=== PATIENT | female | born 1930 | race Caucasian/White ===

== ENCOUNTER 2018-11-19 17:50 | Emergency (ER) | payer MEDICARE, OTHER ==
[~2018-11-19 17:50] MED LIST: ISOVUE-370 76%-LOCM 1 ML ONE
[2018-11-19 18:50] LABS: #Eosinphils 0.2 thou/uL (0.0-0.7); #Lymphocytes 1.4 thou/uL (1.20-3.40); #Monocytes 0.8 thou/uL (0.11-0.59); #Neutrophils 7.4 thou/uL (1.40-6.50); %Basophils 0.3 % (0.0-1.0); %Eosinophils 1.6 % (0.0-10.0); %Lymphocytes 14.5 % (21.0-51.0); %Monocytes 7.9 % (0.0-10.0); %Neutrophils 75.7 % (42.0-75.0); Hemoglobin 12.1 g/dL (12.0-16.0); Mean Corpuscular HGB CONC 31.9 g/dL (32.0-36.0); Mean Corpuscular Hemoglobin 29.4 pg (27.0-31.0); Mean Corpuscular Volume 92.1 fL (78.0-98.0); Mean Platelet Volume 7.6 fL (7.4-10.4); Platelet Count 201 thou/uL (130-400); RBC Distribution Width 11.6 % (11.5-14.5); White Blood Cell (WBC) Count 9.7 thou/uL (4.8-10.8)
[2018-11-19 19:18] LABS: ALT (SGPT) 29 U/L (8-55); AST (SGOT) 39 U/L (5-34); Albumin 3.9 g/dL (3.4-4.8); Alkaline Phosphatase 100 U/L (40-150); BUN (Urea Nitrogen) 22 mg/dL (9.8-20.1); Bilirubin, Total 0.4 mg/dL (0.2-1.2); Calc. Creatinine Clearance 0 mL/min (70-130); Calcium 9.7 mg/dL (7.8-10.44); Estimated GFR-MDRD 59; Globulin 2.6 g/dL (2.4-3.5); Glucose 98 mg/dL (83-110); Protein, Total 6.5 g/dL (6.0-8.3)
--- NOTE | 2018-11-19 19:24 | RAD ---
CHEST ONE VIEW: 11/19/18 INDICATION: History of shortness of breath and chest pain. FINDINGS: There is scattered pulmonary nodules suspicious for metastatic disease. There is cardiomegaly. There is small bilateral pleural effusions, left greater than right. There is mild pulmonary vascular conge stion. There is a calcified granuloma in the right mid lung. No acute osseous abnormality is evident. IMPRESSION: 1. Scattered pulmonary nodules suspicious for metastatic disease. 2. Cardiomegaly with changes of mild CHF. POS: [facility]
[2018-11-19 19:27] LABS: Anion Gap 16 mmol/L (10-20); Carbon Dioxide 36 mmol/L (23-31); Chloride 92 mmol/L (98-107); Potassium 3.2 mmol/L (3.5-5.1); Sodium 141 mmol/L (136-145)
--- NOTE | 2018-11-19 20:19 | CT ---
CT arteriogram chest with IV contrast and 3-D imaging HISTORY: Chest pain. Dyspnea. FINDINGS: There is good contrast opacification pulmonary arteries and thoracic aorta with normal bran nikita of the great vessels at the aortic arch. Lungs are hyperinflated. Scattered throughout each lung are patchy ill-defined areas of chronic appearing parenchymal opacity and scarring. Scattered ca lcified granulomata are consistent with healed granulomatous disease. No pleural fluid or mediastinal adenopathy. No pneumothorax. Calcification throughout the arterial structures. Low-density lesion at the expected location of the left adrenal gland may reflect an adenoma. IMPRESSION: No CT evidence of pulmonary embolus. Atherosclerosis. Pulmonary hyperinflation with scattered areas of scarring and other chronic appearing parenchymal opa city. No active abnormalities are reliably demonstrated.
[2018-11-19] MEDS ORDERED: methylPREDNISolone Sod Succ/PF 125 MG/2 ML VIAL ONE (21:55)
--- NOTE | 2018-11-23 01:28 | EKG ---
Test Reason : Blood Pressure : / mmHG Vent. Rate : 075 BPM Atrial Rate : 075 BPM P-R Int : 160 ms QRS Dur : 088 ms QT Int : 442 ms P-R-T Axes : 093 024 058 degrees QTc Int : 493 ms Normal sinus rhythm with sinus arrhythmia Possible Left atrial enlargement Septal infarct , age undetermined Abnormal ECG Confirmed by INOCENTE FLETCHER ([id number]), web content editor CHIRAG DIAZ ([id number]) on 11/23/2018 1:27:23 AM Referred By: Confirmed By:INOCENTE FLETCHER
== END 2018-11-19 22:10 | disposition home or self-care (01) ==
LOC: ERS 17:50
DX: J44.1 Chronic obstructive pulmonary disease with (acute) exacerbation (principal)
CPT/HCPCS: 36415; 71045; 71275; 80053; 81001; 83880; 84484; 85025; 87086; 93005; 96365; J1956; J2930; Q9966

== ENCOUNTER 2018-12-18 12:45 | Outpatient (CLI) | payer MEDICARE, OTHER ==
--- NOTE | 2018-12-18 14:31 | RAD ---
2 VIEW CHEST: Date: 12/18/18 HISTORY: Dyspnea. COMPARISON: 11/19/18. FINDINGS: Cardiomegaly again noted. No evidence of vascular congestion or edema. No focal infiltrate. Posterior gutters are blunted, which could represent small effusions. This is a stable finding. Calcified gran uloma in the right mid lung again noted. IMPRESSION: Stable chest findings with no evidence of acute lung process. Small effusions may be present. POS: [facility]
== END 2018-12-18 12:46 | disposition home or self-care (01) ==
LOC: RAD 12:45
PROVIDERS: ATTEND Internal Medicine Critical Care Medicine
DX: R06.00 Dyspnea, unspecified (principal)
CPT/HCPCS: 71046

== ENCOUNTER 2018-12-27 10:22 | Observation (INO) | payer MEDICARE, OTHER ==
--- NOTE | 2018-12-27 10:46 | RAD ---
Chest one view HISTORY: Cough. Chest pain. COMPARISON: 12/18/2018. FINDINGS: Cardiac silhouette is magnified and enlarged. Pulmonary vasculature is unremarkable. Patchy areas of atelectasis are again demonstrated at the right lateral lung base and each upper lobe. Lung markings extend beyond the skinfold at the left mid chest that is vertically oriented and mimics a pneumothorax. Calcified granulomata are consistent with healed granulomatous disease. Blunting of each costophrenic angle. Mediastinum is midline. IMPRESSION: Cardiomegaly and patchy areas of atelectasis are stable. Small amount of bilateral pleura l fluid. No active cardiopulmonary abnormalities are otherwise demonstrated.
[2018-12-27 11:00] LABS: #Eosinphils 0.1 thou/uL (0.0-0.7); #Lymphocytes 1.4 thou/uL (1.20-3.40); #Monocytes 0.8 thou/uL (0.11-0.59); #Neutrophils 7.5 thou/uL (1.40-6.50); %Basophils 0.4 % (0.0-1.0); %Eosinophils 1.3 % (0.0-10.0); %Lymphocytes 14.3 % (21.0-51.0); %Monocytes 7.9 % (0.0-10.0); Hemoglobin 12.2 g/dL (12.0-16.0); Mean Corpuscular HGB CONC 32.3 g/dL (32.0-36.0); Mean Corpuscular Hemoglobin 29.6 pg (27.0-31.0); Mean Corpuscular Volume 91.5 fL (78.0-98.0); Mean Platelet Volume 7.3 fL (7.4-10.4); Platelet Count 201 thou/uL (130-400); RBC Distribution Width 12.2 % (11.5-14.5); Red Blood Cell (RBC) Count 4.11 mill/uL (4.20-5.40); White Blood Cell (WBC) Count 9.9 thou/uL (4.8-10.8)
[2018-12-27] MEDS ORDERED: Aspirin Chewable 81 MG TAB ONE (11:05)
[2018-12-27 11:28] LABS: ALT (SGPT) 19 U/L (8-55); AST (SGOT) 28 U/L (5-34); Albumin 3.5 g/dL (3.4-4.8); Alkaline Phosphatase 81 U/L (40-110); Anion Gap 13 mmol/L (10-20); BUN (Urea Nitrogen) 15 mg/dL (9.8-20.1); Bilirubin, Total 0.6 mg/dL (0.2-1.2); CK (CPK) 129 U/L (29-168); Calc. Creatinine Clearance 0 mL/min (70-130); Calcium 9.9 mg/dL (7.8-10.44); Carbon Dioxide 37 mmol/L (23-31); Chloride 96 mmol/L (98-107); Estimated GFR-MDRD 60; Globulin 3.1 g/dL (2.4-3.5); Glucose 100 mg/dL (83-110); Potassium 3.4 mmol/L (3.5-5.1); Protein, Total 6.6 g/dL (6.0-8.3); Sodium 143 mmol/L (136-145)
--- NOTE | 2018-12-27 13:51 | CT ---
CT arteriogram chest with IV contrast and 3-D imaging HISTORY: Chest pain. Dyspnea. COMPARISON: 11/19/2018. FINDINGS: There is good contrast opacification of the pulmonary arteries and thoracic aorta with norm al branching of the great vessels at the aortic arch. Lungs remain hyperinflated. Prominent areas of nodular scarring within each lung are similar in appearance to the prior exam. Calcified granuloma ta are again demonstrated. Pleural thickening and scarring at the posterior costophrenic angles is again demonstrated, right greater than left. Calcification within the arterial structures. Mildly displaced healing fracture of the lateral aspect of the right fifth rib is apparent. Nonhealin g fracture of the lateral aspect of the right sixth rib now evident. Within the partially visualized upper abdomen, low-density lesion of the left adrenal gland is stable. IMPRESSION: No CT evidence of pulmonary embolus. Atherosclerosis. Right lateral mid rib fractures. No evidence of complication. Extensive parenchymal scarring and other chronic-type findings are stable.
[2018-12-27 17:04] LABS: Troponin I 0.044 ng/mL (< 0.028)
[2018-12-27] MEDS ORDERED: HYDROcodone/Acetaminophen 5/325 mg Tablet PO PRN (17:19)
[2018-12-27] MEDS ORDERED: Acetaminophen 325 MG TAB PO PRN (17:19)
[2018-12-27] MEDS ORDERED: Pot Chloride/Pot Bicarb/Cit Ac 25 mEq Effervescent Tablet PO SCH (17:45)
[2018-12-27] MEDS ORDERED: Potassium Bicarbonate/Cit Ac 25 MEQ TAB PO SCH (18:30)
[2018-12-27 19:30] VITALS: BMI 17.0
[2018-12-27 20:17] LABS: Troponin I 0.045 ng/mL (< 0.028)
--- NOTE | 2018-12-27 20:18 | HP ---
PRIMARY CARE PHYSICIAN: Dr. Camilo. CHIEF COMPLAINT: Chest pain. HISTORY OF PRESENT ILLNESS: This is a very pleasant 88-year-old female with a history of dementia, schizophrenia, congestive heart failure, CVA, hypertension, and dysphagia. She presented to the emergency room today after started complaining about right-sided chest pain yesterday. The patient is unable to answer questions during review of systems due to her underlying dementia and schizophrenia. Family states mental status is at baseline. They are currently at the bedside. Daughter cares for her mother and is aware of her past medical history and current symptoms. Daughter reports that she started to have the pain yesterday and it is gradually worsening. She gave her some Motrin this morning and is not really sure whether that helped. Daughter reports that she appears to have more pain with a cough, which she has had for a few days, but denied any fevers or chills. She has a history of aspiration pneumonia due to dysphagia from a previous stroke, but has not been hospitalized for this since March of this year. Lab work; potassium 3.4, chloride 96, carbon dioxide 37. Troponin; first one was negative, second one is in the indeterminate range of 0.044. BNP at 164.3. The patient underwent a chest x-ray, which showed cardiomegaly with patchy areas of atelectasis, which are stable. Small amounts of bilateral pleural effusions. The patient also underwent a CTA of the chest thorax, which was negative for any pulmonary emboli, but did show right lateral mid rib fractures. No evidence of any complication. Extensive parenchymal scarring and other chronic type findings, which are stable. at the bedside states he is not sure how she may have gotten those rib fractures, but she is tender on palpation. Reports that she does have the bedside commode and it is possible that she got herself up in the middle of the night and fell without anyone knowing. Due to the indeterminate troponin, the patient admitted to the observation unit for further management. REVIEW OF SYSTEMS: Essentially unobtainable. Daughter reports that she has been complaining of chest pain on the right side, worse with cough. PAST MEDICAL HISTORY: Based on prior records, notable for COPD, chronic respiratory failure, on p.r.n. oxygen, chronic dysphagia, anxiety, schizophrenia, hypertension, hyperlipidemia, osteoporosis, and history of CVA. Also, some dementia. PAST SURGICAL HISTORY: Bladder suspension, history of ECT for schizophrenia. FAMILY HISTORY: Both parents had heart disease. Also, hypertension in the family. SOCIAL HISTORY: The patient lives at home with her family. Her is there and daughter comes regularly to help take care of her. reports that the patient is a full code. On last admission, she was a chemical code and intubation only. We may need to reassess once daughter is at the bedside. ALLERGIES: NONE. CURRENT MEDICATIONS: From the ER; 1. Olanzapine 5 mg p.o. b.i.d., although I believe that daughter told me that the a.m. dose has been increased to 7.5. 2. Lisinopril 20 mg p.o. b.i.d. 3. Mirtazapine 7.5 mg at bedtime. 4. Hydralazine 10 mg t.i.d. 5. Amlodipine 10 mg p.o. at bedtime. 6. Furosemide 20 mg b.i.d. 7. Aspirin 81 mg p.o. once a day. 8. Zinc 30 mg once a day in the morning. 9. Calcium 150 mg p.o. b.i.d. PHYSICAL EXAMINATION: VITAL SIGNS: Blood pressure 165/72, pulse is 80, respirations are 22, temperature is 98.7. Pain is unable to determine. PO2 sats are 99% on 2 L. CONSTITUTIONAL: The patient appears nontoxic. She is pleasantly confused, is oriented to person and place. She does answer some questions appropriately. Does answer some yes/no questions. HEENT: Head is atraumatic and normocephalic. Eyes, pupils are equally round and reactive to light. Extraocular muscles are intact. ENT; mouth exam is normal. Mucous membranes are dry. NECK: Normal range of motion. Trachea is midline. RESPIRATORY: Chest breath sounds are clear. No findings of any respiratory distress. CARDIOVASCULAR: Regular heart rate and rhythm. Heart sounds are normal. ABDOMEN: Bowel sounds are heard. No tenderness on palpation. EXTREMITIES: Upper extremities; normal inspection, normal range of motion. Radial pulses are normal. Lower extremity; normal inspection, normal range of motion. Pedal pulses are normal. No edema is noted. NEUROLOGIC: The patient is oriented to person and place. SKIN: Warm, dry, and normal in color. DIAGNOSTIC DATA: EKG in the emergency room shows AFib with controlled ventricular response. Beats per minute 74 with competing junctional pacemaker. PLAN/ASSESSMENT: 1. Chest pain with subacute rib fractures to right 5th and 6th, and she is tender on palpation. Troponin in the indeterminate range, so we will trend troponins x3, place the patient on a monitor, ask Cardiology to consult. 2. History of dementia, schizophrenia. We will restart home medications. 3. History of hypertension, restart home medications. 4. Chronic obstructive pulmonary disease. We will add some DuoNeb p.r.n. as needed. 5. Case discussed with Dr. Forte who agrees with plan. 6. Deep venous thrombosis and gastrointestinal prophylaxis started. 7. Hospital course dependent on clinical findings. Job ID: [id number]
[2018-12-27] MEDS: HYDROcodone/Acetaminophen 5/325 mg Tablet PO PRN (21:00)
[2018-12-27] MEDS ORDERED: OLANZapine 10 MG VIAL IM SCH (21:00)
[2018-12-27] MEDS: Mirtazapine 15 MG TAB PO SCH (21:01)
[2018-12-27] MEDS: Famotidine 20 MG TAB PO SCH (21:01)
[2018-12-27] MEDS ORDERED: OLANZapine 5 MG TAB PO SCH (23:30)
[2018-12-28 06:19] LABS: #Basophils 0.1 thou/uL (0.0-0.2); #Eosinphils 0.2 thou/uL (0.0-0.7); #Lymphocytes 1.5 thou/uL (1.20-3.40); #Neutrophils 7.1 thou/uL (1.40-6.50); %Basophils 0.6 % (0.0-1.0); %Eosinophils 2.2 % (0.0-10.0); %Lymphocytes 15.5 % (21.0-51.0); %Monocytes 9.6 % (0.0-10.0); %Neutrophils 72.1 % (42.0-75.0); Hemoglobin 11.8 g/dL (12.0-16.0); Mean Corpuscular HGB CONC 32.6 g/dL (32.0-36.0); Mean Corpuscular Hemoglobin 29.1 pg (27.0-31.0); Mean Corpuscular Volume 89.3 fL (78.0-98.0); Mean Platelet Volume 7.5 fL (7.4-10.4); Platelet Count 204 thou/uL (130-400); RBC Distribution Width 12.2 % (11.5-14.5); Red Blood Cell (RBC) Count 4.06 mill/uL (4.20-5.40); White Blood Cell (WBC) Count 9.9 thou/uL (4.8-10.8)
[2018-12-28 06:47] LABS: BUN (Urea Nitrogen) 16 mg/dL (9.8-20.1); Calc. Creatinine Clearance 36 mL/min (70-130); Calcium 9.6 mg/dL (7.8-10.44); Estimated GFR-MDRD 70; Glucose 81 mg/dL (83-110)
[2018-12-28 06:56] LABS: Anion Gap 16 mmol/L (10-20); Carbon Dioxide 33 mmol/L (23-31); Chloride 99 mmol/L (98-107); Potassium 3.1 mmol/L (3.5-5.1); Sodium 145 mmol/L (136-145)
[2018-12-28] MEDS: Amlodipine 10 MG TAB PO SCH (10:39)
[2018-12-28] MEDS: Enoxaparin Sodium 30 MG/0.3 ML SYRINGE SC SCH (10:42)
[2018-12-28] MEDS: Famotidine 20 MG TAB PO SCH ×2 (10:42→20:57)
[2018-12-28] MEDS: Furosemide 20 MG TAB PO SCH (10:43)
[2018-12-28] MEDS: Lisinopril 20 MG TAB PO SCH ×2 (10:43→20:57)
[2018-12-28] MEDS: hydrALAZINE 10 MG TAB PO SCH ×3 (10:43→20:55)
[2018-12-28] MEDS: OLANZapine 2.5 MG TAB PO SCH (10:44)
[2018-12-28] MEDS: HYDROcodone/Acetaminophen 5/325 mg Tablet PO PRN ×2 (15:51→21:57)
--- NOTE | 2018-12-28 19:26 | PDOC.HOSPP ---
- Subjective Encounter Date: 12/28/18 Encounter Time: 19:05 Subjective: f/u for R-sided chest wall pain and rib fx after apparent fall that was unwitnessed. Lives at home with family/ and receives HH services with with PT about 1x/wk. RW for ambulating but unsteady and uses WC for long distance mobilization. - Objective Vital Signs & Weight: Vital Signs (12 hours) Temp Pulse Resp BP BP Pulse Ox 12/28/18 15:50 61 152/82 H 12/28/18 15:41 98.6 F 61 18 152/82 H 100 12/28/18 11:35 98.4 F 74 18 176/75 H 99 12/28/18 10:43 75 182/78 H 12/28/18 10:39 75 182/78 H 12/28/18 08:00 98.2 F 72 20 138/105 H 95 Weight Weight 96 lb 3.2 oz I&O: 12/27/18 12/28/18 12/29/18 06:59 06:59 06:59 Intake Total 50 480 Balance 50 480 Result Diagrams: 12/28/18 05:12 12/28/18 05:12 Additional Labs: Laboratory Tests 12/27/18 12/27/18 12/27/18 10:44 10:44 10:44 Potassium 3.4 L Troponin I 0.018 B-Natriuretic Peptide 164.3 H 12/27/18 12/27/18 16:14 19:45 Potassium Troponin I 0.044 H 0.045 H B-Natriuretic Peptide Radiology Reviewed by me: Yes (CTA chest - R 5th/6th later rib fx) EKG Reviewed by me: Yes (Tele - SR) Hospitalist ROS - Medication Medications: Active Medications Generic Name Dose Route Start Last Admin Trade Name Freq PRN Reason Stop Dose Admin Hydrocodone Bitart/Acetaminophen 1 tab 12/27/18 17:19 12/28/18 15:51 [place] 5/325 PO 1 tab Q4H PRN Administration Moderate Pain (4-6) Amlodipine Besylate 10 mg 12/28/18 09:00 12/28/18 10:39 Norvasc PO 10 mg DAILY STACY Administration Enoxaparin Sodium 30 mg 12/28/18 09:00 12/28/18 10:42 Lovenox SC 30 mg 0900 STACY Administration Famotidine 20 mg 12/27/18 21:00 12/28/18 10:42 Pepcid PO 20 mg BID STACY Administration Furosemide 20 mg 12/28/18 09:00 12/28/18 10:43 Lasix PO 20 mg DAILY SATCY Administration Hydralazine HCl 10 mg 12/28/18 09:00 12/28/18 15:50 Apresoline PO 10 mg TID STACY Administration Lisinopril 20 mg 12/28/18 09:00 12/28/18 10:43 Zestril PO 20 mg BID STACY Administration Mirtazapine 7.5 mg 12/27/18 21:00 12/27/18 21:01 Remeron PO 7.5 mg HS STACY Administration Olanzapine 7.5 mg 12/28/18 09:00 12/28/18 10:44 Zyprexa PO 7.5 mg DAILY STACY Administration - Exam General Appearance: NAD, awake alert Eye: PERRL, anicteric sclera ENT: normocephalic atraumatic, no oropharyngeal lesions Neck: supple, symmetric, no JVD, no thyromegaly, no lymphadenopathy Heart: RRR, no gallops, no rubs, normal peripheral pulses Respiratory - other findings: diminished in bases, occasional rhonchi Gastrointestinal: soft, non-tender, non-distended, normal bowel sounds, no palpable masses Extremities: no cyanosis, no clubbing, no edema Skin: normal turgor Neurological: cranial nerve grossly intact, no new deficit Musculoskeletal: normal tone, generalized weakness Psychiatric: oriented to person Hosp A/P (1) Rib fractures Code(s): S22.39XA - FRACTURE OF ONE RIB, UNSP SIDE, INIT FOR CLOS FX Status: Acute Qualifiers: Rib fracture type: multiple ribs Laterality: right Fracture healing: with delayed healing Plan: Pain control, trial Lidocaine patches, PT with HH at d/c (2) Debility Code(s): R53.81 - OTHER MALAISE Status: Chronic Plan: See above, fall risk precautions (3) Hypokalemia Code(s): E87.6 - HYPOKALEMIA Status: Acute Plan: Klor-con 40meq BID (4) Schizoaffective disorder Code(s): F25.9 - SCHIZOAFFECTIVE DISORDER, UNSPECIFIED Status: Chronic Plan: Supportive mgmt, Olanzapine (5) Dementia Code(s): F03.90 - UNSPECIFIED DEMENTIA WITHOUT BEHAVIORAL DISTURBANCE Status: Chronic Plan: Family support - Plan plan discussed w/ family, PT/OT, social sciences lecturer, out of bed/ambulate, DVT proph w/SCDs Stable currently Klor Con 40meq BID OOB with PT Lidocaine patches daily Likely home in am
[2018-12-28] MEDS ORDERED: Lidocaine 5% Patch TD SCH (20:00)
[2018-12-28] MEDS: Mirtazapine 15 MG TAB PO SCH (20:57)
[2018-12-28] MEDS ORDERED: OLANZapine 5 MG TAB PO SCH (21:00)
[2018-12-29] MEDS ORDERED: Lidocaine Patch Removal 1 EACH TOP SCH (08:00)
[2018-12-29] MEDS: Enoxaparin Sodium 30 MG/0.3 ML SYRINGE SC SCH (09:14)
[2018-12-29] MEDS: Amlodipine 10 MG TAB PO SCH (09:14)
[2018-12-29] MEDS: hydrALAZINE 10 MG TAB PO SCH (09:15)
[2018-12-29] MEDS: Furosemide 20 MG TAB PO SCH (09:15)
[2018-12-29] MEDS: Lisinopril 20 MG TAB PO SCH (09:15)
[2018-12-29] MEDS: Famotidine 20 MG TAB PO SCH (09:15)
[2018-12-29] MEDS: OLANZapine 2.5 MG TAB PO SCH (09:16)
[2018-12-29 12:14] VITALS: BP 155/66; TEMP 98.5
--- NOTE | 2018-12-29 16:46 | DIS ---
DATE OF ADMISSION: 12/27/2018 DATE OF DISCHARGE: 12/29/2018 DISCHARGE DIAGNOSES: 1. Acute/subacute right-sided rib fractures. 2. Chest pain secondary to acute/subacute right-sided rib fractures. 3. Deconditioning. 4. Hypokalemia. 5. Schizoaffective disorder. 6. Dementia, multifactorial. CONSULTATIONS: None. PERTINENT LABORATORY AND X-RAY FINDINGS: Potassium ranged between 3.1 to 3.4. Creatinine ranged between 0.78 to 0.89. Troponin I ranged between 0.018 to 0.045. BNP 164, previously noted 341 on 11/19/2018. Albumin 3.5. CBC showed a hemoglobin ranging between 12 to 12.2. Portable chest x-ray dated 12/27/2018, showed bibasilar atelectasis with chronic changes in bilateral lung kelly. No acute process identified. CT angiogram of the chest dated 12/27/2018, showed mildly displaced healing fractures on the lateral aspect of the right 5th rib and nonhealing fracture on the lateral aspect of the right 6th rib. HOSPITAL COURSE: The patient was observed after initially presenting with complaints of right-sided chest pain with CT imaging of the chest confirming evidence of 2 rib fractures of the 5th and 6th ribs. The patient was placed on [place] in addition to lidocaine patches for symptomatic relief. No specific witnessed fall prior to admission, likely leading to the patient's presentation. The patient was also noted with mild hypokalemia, receiving potassium supplementation during the hospital course with recommendations to continue potassium supplementation after discharge. The patient remained clinically stable during the hospital course with stable vital signs, remaining on oxygen supplementation at baseline levels of 2 L/minute by nasal cannula. I have examined the patient at the time of discharge and discussed followup instructions. Family verbalized understanding and in agreement and ready for discharge on 12/29/2018. DISCHARGE MEDICATIONS: 1. Lasix 20 mg p.o. daily. 2. Olanzapine 7.5 mg p.o. daily and 5 mg p.o. at bedtime. 3. Norvasc 10 mg p.o. daily. 4. Apresoline 10 mg p.o. t.i.d. 5. Lidocaine patch 5% two patches transdermally daily x12 hours, then remove. 6. Zestril 20 mg p.o. b.i.d. 7. Remeron 7.5 mg p.o. at bedtime. 8. Tramadol 50 mg p.o. q.6 hours p.r.n. pain, #30. FOLLOWUP: The patient may follow up with her primary care provider, Dr. Camilo, within 7 days of discharge. CONDITION ON DISCHARGE: Fair. ACTIVITY: Rolling walker with contact guard assistance and fall risk precautions. SPECIAL INSTRUCTIONS: Resume Home Health Services including physical therapy 3 times per week. DIET: Regular. CODE STATUS: Full. DISPOSITION: Home with [facility] including physical therapy on 12/29/2018. Job ID: [id number]
--- NOTE | 2019-01-03 13:14 | EKG ---
Test Reason : Blood Pressure : / mmHG Vent. Rate : 074 BPM Atrial Rate : 127 BPM P-R Int : 000 ms QRS Dur : 080 ms QT Int : 434 ms P-R-T Axes : 000 -29 038 degrees QTc Int : 481 ms Atrial fibrillation with a competing junctional pacemaker Septal infarct , age undetermined Abnormal ECG Confirmed by MANJU MOROCHO MD ([id number]), news assignment editor DANY SHARMA ([id number]) on 01/03/2019 1:14:18 PM Referred By: Confirmed By:MANJU MOROCHO MD
== END 2018-12-29 13:05 | disposition home health service (06) ==
LOC: ERS 10:22 → 2NO 16:35
PROVIDERS: ADMIT Internal Medicine; ATTEND Internal Medicine
DX: M80.08XA Age-related osteoporosis with current pathological fracture, vertebra(e), initial encounter for fracture (principal); I11.0 Hypertensive heart disease with heart failure; I50.9 Heart failure, unspecified; R53.81 Other malaise; F03.90 Unspecified dementia, unspecified severity, without behavioral disturbance, psychotic disturbance, mood disturbance, and anxiety; F20.9 Schizophrenia, unspecified; J44.9 Chronic obstructive pulmonary disease, unspecified; F41.9 Anxiety disorder, unspecified; E78.5 Hyperlipidemia, unspecified; R13.10 Dysphagia, unspecified; Z86.73 Personal history of transient ischemic attack (TIA), and cerebral infarction without residual deficits; Z79.82 Long term (current) use of aspirin; Z79.899 Other long term (current) drug therapy; Z91.81 History of falling
CPT/HCPCS: 71045; 71275; 80048; 80053; 82550; 83880; 84484 ×2; 85025 ×2; 93005; 96372 ×2; 97139; 97530; 99285; G0378 ×4; 36415; J1650

== ENCOUNTER 2019-03-30 09:34 | Outpatient (CLI) | payer MEDICARE, OTHER ==
--- NOTE | 2019-03-30 09:54 | RAD ---
CHEST 2 VIEWS: COMPARISON: 12/18/2018, 12/27/2018. HISTORY: Dyspnea. FINDINGS: Upper normal cardiac silhouette. Hyperinflation with chronic lung parenchymal changes. Interval devel opment of a small bilateral pleural effusion. There is no pneumothorax or osseous abnormalities. IMPRESSION: Hyperinflation with chronic lung parenchymal changes. Transcribed Date/Time: 03/30/2019 10:27 AM
== END 2019-03-30 09:35 | disposition home or self-care (01) ==
LOC: RAD 09:34
PROVIDERS: ATTEND Internal Medicine Critical Care Medicine
DX: R06.00 Dyspnea, unspecified (principal); J98.4 Other disorders of lung
CPT/HCPCS: 71046

== ENCOUNTER 2019-05-26 14:12 | Inpatient (IN) | payer MEDICARE ==
[2019-05-26 14:43] LABS: #Monocytes 0.5 thou/uL (0.11-0.59); #Neutrophils 9.1 thou/uL (1.40-6.50); %Basophils 0.3 % (0.0-1.0); %Eosinophils 0.2 % (0.0-10.0); %Monocytes 4.8 % (0.0-10.0); %Neutrophils 85.8 % (42.0-75.0); Hemoglobin 10.4 g/dL (12.0-16.0); Mean Corpuscular HGB CONC 30.8 g/dL (32.0-36.0); Mean Corpuscular Hemoglobin 29.1 pg (27.0-31.0); Mean Corpuscular Volume 94.5 fL (78.0-98.0); Mean Platelet Volume 7.8 fL (7.4-10.4); Platelet Count 187 thou/uL (130-400); RBC Distribution Width 12.9 % (11.5-14.5); Red Blood Cell (RBC) Count 3.58 mill/uL (4.20-5.40); White Blood Cell (WBC) Count 10.6 thou/uL (4.8-10.8)
--- NOTE | 2019-05-26 15:20 | RAD ---
XR Chest 1 View Portable History: Shortness of breath Comparison: Radiograph March 30, 2019 Findings: Heart size is enlarged. Progressive parenchymal opacities throughout the right lung. Enlarg ing effusions. Moderate to large effusion on the right and moderate on the left. No acute osseous abnormality. Impression: 1. Enlarging bilateral pleural effusions. 2. Progressive pulmonary opacification of the right lung relatively to the left concerning for worsen ing atypical infection. 3. Cardiomegaly. 4. Healing right rib fractures.
[2019-05-26 15:21] LABS: ALT (SGPT) 32 U/L (8-55); AST (SGOT) 44 U/L (5-34); Albumin 3.7 g/dL (3.4-4.8); Alkaline Phosphatase 87 U/L (40-110); BUN (Urea Nitrogen) 18 mg/dL (9.8-20.1); Bilirubin, Total 0.4 mg/dL (0.2-1.2); Calc. Creatinine Clearance 0 mL/min (70-130); Calcium 9.8 mg/dL (7.8-10.44); Estimated GFR-MDRD 64; Globulin 2.5 g/dL (2.4-3.5); Glucose 107 mg/dL (83-110); Protein, Total 6.2 g/dL (6.0-8.3)
[2019-05-26 15:30] LABS: Anion Gap 16 mmol/L (10-20); CKMB 6.3 ng/mL (0-6.6); Carbon Dioxide 40 mmol/L (23-31); Chloride 91 mmol/L (98-107); Sodium 143 mmol/L (136-145)
[2019-05-26] MEDS ORDERED: Aspirin 325 MG TAB ONE (16:52)
[2019-05-26] MEDS ORDERED: Azithromycin 500 MG VIAL ONE (16:52)
[2019-05-26] MEDS ORDERED: cefTRIAXone\\ROCEPHIN 1 GM VIAL ONE (16:52)
[2019-05-26] MEDS ORDERED: Furosemide 40 MG/4 ML VIAL ONE (16:52)
[2019-05-26 17:35] LABS: Base Excess-Venous 16.6 mmol/L (-2.0 to 3.0); Bicarbonate (HCO3v) 44.3 mmol/L (22.0-28.0); CO2 Tension (PvCO2) 71.1 mmHg (40.0-50.0); Calcium, Ionized 1.18 mmol/L (See Comments:); Chloride 91 mmol/L (98-107); Hemoglobin - Calc 10.5 g/dL (12.0-16.0); Potassium 3.5 mmol/L (3.5-5.1); Sodium 142 mmol/L (138-145); T. Carbon Dioxide 46.4 mmol/L (22.0-28.0); vO2 Saturation-calc 78.9 % (60.0-85.0)
[2019-05-26 17:53] LABS: Troponin I 0.079 ng/mL (< 0.028)
[2019-05-26 21:11] LABS: Troponin I 0.064 ng/mL (< 0.028)
--- NOTE | 2019-05-26 22:41 | HP ---
CHIEF COMPLAINT: Shortness of breath. HISTORY OF PRESENT ILLNESS: Ms. Boston is an 88-year-old female with past medical history of congestive heart failure, schizophrenia, hypertension, hyperlipidemia, aspiration pneumonia, CVA, among others, presents to the emergency room with shortness of breath that started this morning. The patient is on home oxygen. On 2 L/minute nasal cannula, oxygen saturation usually runs in the low 90s. In the emergency room, the patient was hypoxic, needed to be placed on non-rebreather bag initially, which was titrated down to 5 L/minute. Workup in the emergency room, the patient was found to have bilateral effusions, more on the right with bilateral opacities ?pneumonia. The patient was given IV Lasix and put on IV antibiotics. The patient is being admitted to hospital for further management. The patient is a poor historian due to underlying medical condition. PAST MEDICAL HISTORY: As mentioned above in the history of present illness. PAST SURGICAL HISTORY: 1. Ovarian removal. 2. Bladder suspension. SOCIAL HISTORY: Denies alcohol drinking. No smoking history. FAMILY HISTORY: Reviewed and noncontributory. ALLERGIES: NO KNOWN ALLERGIES. HOME MEDICATIONS: Please see home medication reconciliation form for updated medications. REVIEW OF SYSTEMS: Unable to obtain due to the patient's underlying medical condition, but she is denying anything other than shortness of breath. PHYSICAL EXAMINATION: GENERAL: The patient is awake, alert, in moderate respiratory distress. VITAL SIGNS: Blood pressure is 167/81, pulse is 76, respiratory rate is 30, pulse oximetry is 98%, temperature is 98. HEAD AND NECK: Normocephalic, atraumatic. NECK: Supple. CHEST: Decreased air entry in both bases with few scattered crackles. HEART: S1, S2. Regular. ABDOMEN: Soft, nontender. Bowel sounds present. NEUROLOGIC: Awake, alert. No focal deficits. PSYCHIATRIC: Unable to assess. EXTREMITIES: No clubbing or cyanosis. LABORATORY DATA: Troponin 0.04. WBC count is 10, hemoglobin 10.4, and platelets 187. Chest x-ray shows bilateral pleural effusions with progressive pulmonary opacification in the right lung relatively to the length concerning for worsening infection? ASSESSMENT AND PLAN: 1. Acute exacerbation of congestive heart failure, bilateral pleural effusion. 2. Pneumonia? 3. Acute on chronic respiratory failure. 4. Schizophrenia. 5. Hypertension. 6. Hyperlipidemia. 7. Dementia. PLAN: 1. Admit. 2. Telemetry monitoring. 3. Serial troponins given the initial indeterminate troponins. 4. IV diuresis. 5. Empiric IV antibiotics for ?possible pneumonia. 6. Oxygen saturation more than 92%. 7. Reconcile home medications. 8. DVT prophylaxis as appropriate. 9. Expected length of stay 2 midnights or more. Job ID: [id number]
[2019-05-26] MEDS ORDERED: Amlodipine 10 MG TAB PO SCH (23:15)
[2019-05-26] MEDS ORDERED: OLANZapine 5 MG TAB PO SCH (23:30)
[2019-05-26] MEDS ORDERED: Lisinopril 20 MG TAB PO SCH (23:30)
[2019-05-26] MEDS ORDERED: hydrALAZINE 10 MG TAB PO SCH (23:30)
[2019-05-26] MEDS ORDERED: Mirtazapine 15 MG TAB PO SCH (23:30)
[2019-05-26] MEDS: Azithromycin 500 MG in Sodium Chloride 0.9% 250 ML 250 ML IVPB SCH (23:54)
[2019-05-26] MEDS: cefTRIAXone\\ROCEPHIN 1 GM in Sodium Chloride 0.9% 100 ML IVPB SCH (23:55)
[2019-05-27 05:19] LABS: #Eosinphils 0.1 thou/uL (0.0-0.7); #Lymphocytes 1.2 thou/uL (1.20-3.40); #Monocytes 0.7 thou/uL (0.11-0.59); #Neutrophils 9.5 thou/uL (1.40-6.50); %Basophils 0.1 % (0.0-1.0); %Eosinophils 0.5 % (0.0-10.0); %Lymphocytes 10.4 % (21.0-51.0); %Monocytes 5.7 % (0.0-10.0); %Neutrophils 83.3 % (42.0-75.0); Hemoglobin 10.2 g/dL (12.0-16.0); Mean Corpuscular HGB CONC 30.8 g/dL (32.0-36.0); Mean Corpuscular Hemoglobin 29.2 pg (27.0-31.0); Mean Corpuscular Volume 94.9 fL (78.0-98.0); Mean Platelet Volume 7.9 fL (7.4-10.4); Platelet Count 186 thou/uL (130-400); RBC Distribution Width 12.7 % (11.5-14.5); Red Blood Cell (RBC) Count 3.48 mill/uL (4.20-5.40); White Blood Cell (WBC) Count 11.4 thou/uL (4.8-10.8)
[2019-05-27 05:39] LABS: BUN (Urea Nitrogen) 16 mg/dL (9.8-20.1); Calc. Creatinine Clearance 38 mL/min (70-130); Calcium 9.4 mg/dL (7.8-10.44); Estimated GFR-MDRD 69; Glucose 120 mg/dL (83-110)
[2019-05-27 05:50] LABS: Anion Gap 13 mmol/L (10-20); Chloride 91 mmol/L (98-107); Potassium 3.6 mmol/L (3.5-5.1); Sodium 145 mmol/L (136-145)
[2019-05-27 05:53] LABS: Carbon Dioxide 45 mmol/L (23-31)
[2019-05-27] MEDS ORDERED: Furosemide 40 MG/4 ML VIAL SLOW IVP SCH ×2 (06:00→09:39)
[2019-05-27 07:47] LABS: Actual Bicarbonate (HCO3a) 53.8 mEq/L (22-28); Base Excess (BEa) 23.9 mEq/L (-2.0 to +3.0); Calcium, Ionized 1.15 mmol/L (1.12-1.30); Carboxyhemoglobin (COHb) 0.9 gm% (0.0-3.0); O2 Tension (PaO2) 74.2 mmHg (> 60.0); Potassium - ABG Lab 3.11 mmol/L (3.70-5.30); pH, Arterial 7.37 (7.35-7.45)
[2019-05-27 08:31] LABS: CO2 Tension 95.8 mmHg (35.0-45.0); Puncture Site RRA
[2019-05-27] MEDS: OLANZapine 5 MG TAB PO SCH ×2 (09:34→22:30)
[2019-05-27] MEDS: Lisinopril 20 MG TAB PO SCH ×2 (09:36→21:01)
[2019-05-27] MEDS: hydrALAZINE 10 MG TAB PO SCH ×3 (09:37→21:03)
[2019-05-27] MEDS ORDERED: Furosemide 20 MG/2 ML VIAL SLOW IVP SCH (10:00)
[2019-05-27] MEDS: AcetaZOLAMIDE 250 MG TAB PO SCH ×2 (14:42→20:59)
[2019-05-27] MEDS: Furosemide 20 MG/2 ML VIAL SLOW IVP SCH (14:42)
[2019-05-27] MEDS: methylPREDNISolone Sod Succ 40 MG VIAL IVP SCH ×2 (14:42→22:31)
--- NOTE | 2019-05-27 14:42 | PDOC.HOSPP ---
- Subjective Encounter Date: 05/27/19 Encounter Time: 08:45 Subjective: pt was hypoxic, and weak this morning, plan to move to [facility], daughter bedside, - Objective Vital Signs & Weight: Vital Signs (12 hours) Temp Pulse Resp BP Pulse Ox 05/27/19 14:10 83 05/27/19 14:09 89 36 H 96 05/27/19 12:00 98.1 F 05/27/19 11:14 94 L 05/27/19 10:19 87 05/27/19 10:17 92 29 H 90 L 05/27/19 07:38 97.9 F 82 18 193/79 H 94 L 05/27/19 04:50 97.7 F 75 23 H 152/70 H 94 L Weight Admit Weight 104 lb Weight 104 lb Most Recent Monitor Data Heart Rate from ECG 90 NIBP 164/102 NIBP BP-Mean 122 Respiration from ECG 32 SpO2 97 I&O: 05/26/19 05/27/19 05/28/19 06:59 06:59 06:59 Intake Total 240 Output Total 460 Balance -220 Result Diagrams: 05/27/19 04:54 05/27/19 04:54 Radiology Reviewed by me: Yes EKG Reviewed by me: Yes Hospitalist ROS - Review of Systems Constitutional: reports: weakness. denies: fever, chills, sweats, malaise, other ENT: denies: ear pain, ear discharge, nose pain, nose discharge, nose congestion , mouth pain, mouth swelling, throat pain, throat swelling, other Respiratory: reports: cough, shortness of breath. denies: dry, hemoptysis, SOB with excertion, pleuritic pain, sputum, wheezing, other Cardiovascular: denies: chest pain, palpitations, orthopnea, paroxysmal noc. dyspnea, edema, light headedness, other Gastrointestinal: denies: nausea, vomiting, abdominal pain, diarrhea, constipation, melena, hematochezia, other Genitourinary: denies: dysuria, frequency, incontinence, hematuria, retention, other Musculoskeletal: denies: neck pain, shoulder pain, arm pain, back pain, hand pain, leg pain, foot pain, other - Medication Medications: Active Medications Generic Name Dose Route Start Last Admin Trade Name Freq PRN Reason Stop Dose Admin Albuterol/Ipratropium 3 ml 05/27/19 10:30 05/27/19 14:09 Duoneb NEB 3 ml [id number] STACY Administration Hydralazine HCl 10 mg 05/27/19 09:00 05/27/19 09:37 Apresoline PO 10 mg TID STACY Administration Azithromycin 500 mg/ Sodium 250 mls @ 250 mls/hr 05/26/19 18:00 05/26/19 23: 54 Chloride IVPB Not Given Q24HR STACY Ceftriaxone Sodium 1 gm/ 100 mls @ 200 mls/hr 05/26/19 17:00 05/26/19 23:55 Sodium Chloride IVPB Not Given Q24HR STACY Lisinopril 20 mg 05/27/19 09:00 05/27/19 09:36 Zestril PO 20 mg BID STACY Administration Olanzapine 7.5 mg 05/27/19 09:00 05/27/19 09:34 Zyprexa PO Not Given DAILY STACY - Exam General Appearance: NAD, ill appearing Eye: PERRL, anicteric sclera ENT: normocephalic atraumatic, no oropharyngeal lesions Neck: supple, symmetric, no JVD, no thyromegaly Heart: RRR Heart - other findings: SM+ Respiratory - other findings: coarse sound bilateral Gastrointestinal: soft, non-tender, non-distended Extremities: no cyanosis, no clubbing Skin: normal turgor, no lesions Neurological: no focal deficits Musculoskeletal: normal tone, normal strength Psychiatric: normal affect, normal behavior Hosp A/P (1) Acute respiratory failure with hypoxia and hypercapnia Code(s): J96.01 - ACUTE RESPIRATORY FAILURE WITH HYPOXIA; J96.02 - ACUTE RESPIRATORY FAILURE WITH HYPERCAPNIA Status: Acute (2) Swallowing dysfunction Code(s): R13.10 - DYSPHAGIA, UNSPECIFIED Status: Chronic (3) Dementia Code(s): F03.90 - UNSPECIFIED DEMENTIA WITHOUT BEHAVIORAL DISTURBANCE Status: Chronic Qualifiers: Dementia type: Alzheimer's disease (4) Hypertension Code(s): I10 - ESSENTIAL (PRIMARY) HYPERTENSION Status: Chronic Qualifiers: Hypertension type: essential hypertension Qualified Code(s): I10 - Essential (primary) hypertension (5) Schizoaffective disorder Code(s): F25.9 - SCHIZOAFFECTIVE DISORDER, UNSPECIFIED Status: Chronic (6) Type 2 myocardial infarction Code(s): I21.A1 - MYOCARDIAL INFARCTION TYPE 2 Status: Acute (7) Pulmonary hypertension Code(s): I27.20 - PULMONARY HYPERTENSION, UNSPECIFIED Status: Chronic (8) Protein-calorie malnutrition, moderate Code(s): E44.0 - MODERATE PROTEIN-CALORIE MALNUTRITION Status: Chronic - Plan old records reviewed/req, plan discussed w/ family, continue antibiotics transfer to [facility] pulmonary consult cardiology consult reduce lasix add diamox discussed with family, pt is full code medication reviewed continue symptomatic care bipap home medication reconciled continue rocephin and azithromycin add solumedrol
[2019-05-27] MEDS ORDERED: OLANZapine 10 MG VIAL IM SCH ×2 (16:00→21:00)
[2019-05-27] MEDS ORDERED: Morphine 2 MG/ML SYRINGE SLOW IVP PRN (16:11)
[2019-05-27] MEDS: cefTRIAXone\\ROCEPHIN 1 GM in Sodium Chloride 0.9% 100 ML IVPB SCH (16:41)
[2019-05-27] MEDS ORDERED: Sterile Water 10 ML VIAL FS PRN (16:45)
[2019-05-27] MEDS: Azithromycin 500 MG in Sodium Chloride 0.9% 250 ML 250 ML IVPB SCH (16:53)
[2019-05-27] MEDS ORDERED: acetaZOLAMIDE Sodium 500 mg Vial IVP SCH (17:00)
[2019-05-27] MEDS: Budesonide 0.5 MG/2 ML NEB NEB SCH (18:21)
--- NOTE | 2019-05-27 19:03 | CON ---
DATE OF CONSULTATION: 05/27/2019 HISTORY OF PRESENT ILLNESS: Ms. Boston is a very frail-appearing 88-year-old female with a history of schizophrenia and reported history of dementia. I met with the and met with the daughter and examined the patient. I reviewed office records. She has been seen in our office in December 2018, and was felt to have some mild interstitial changes that were chronic. She was felt to be a chronic aspirator. It was felt by Dr. Miller that this was likely to be a recurrent problem. She has become essentially bedridden and is occasionally up for short distances with a walker. She gets no exercise even though her daughter tries to encourage her. She is not felt to have chronic obstructive pulmonary disease. She was transferred to the intermediate care unit for respiratory distress and placed on BiPAP after breakfast this morning. She is fairly agitated. PAST MEDICAL HISTORY: Remarkable for: 1. Cardiomyopathy. 2. History of depression. 3. History of schizophrenia. 4. History of hypertension. 5. History of stroke. 6. History of arthritis. 7. History of TIAs in the past. 8. History of dementia. 9. History of an oophorectomy. 10. History of bladder suspension. FAMILY HISTORY: Positive for heart disease, depression, hypertension, and stroke. SOCIAL HISTORY: She is . Her is at the bedside. Daughter is at the bedside as well. She is nonsmoker and nondrinker. REVIEW OF SYSTEMS: Not obtainable. PHYSICAL EXAMINATION: GENERAL: She has BiPAP on. VITAL SIGNS: Heart rates in the 90s, blood pressure 170/93, respiratory rates in the 20s, oximetry is 94% to 99% this afternoon. She is mumbling. She is extremely cachectic. NECK: She has no cervical lymphadenopathy. LUNGS: Remarkable for rhonchi. HEART: Regular rhythm. ABDOMEN: Soft. EXTREMITIES: Without asymmetry or edema. NEUROLOGIC: Cannot be assessed. LABORATORY DATA: White count 11.4, hemoglobin 10.2, platelets 186. Sodium 145, potassium 3.6, chloride 91, bicarb 45, BUN 16, creatinine 0.79. Blood gas; pH of 7.37, CO2 of 95, pO2 of 74. Chest x-ray shows bilateral effusions consistent with her history of cardiomyopathy. She has a patchy alveolar infiltrate in her right lung consistent with an aspiration pneumonia. IMPRESSION: Respiratory failure associated with an aspiration pneumonia, that apparently has been a chronic and recurrent problem. I do not feel she will survive this. I encouraged her daughter to have a discussion with the patient's about end of life issues. I have strongly recommended that Ms. Boston never be intubated, have chest compressions or cardiopulmonary resuscitation with cardioversion. We will give her little doses of morphine to try to keep her comfortable while the family is making these decisions. I really cannot see any way she can survive this no matter what we do. TIME SPENT: This is a 70-minute consult, 50% of the time spent on the unit coordinating care. Job ID: [id number] MTDD
[2019-05-27] MEDS: Calcium Carbonate 500 MG ChewTAB PO SCH (20:56)
[2019-05-27] MEDS: Amlodipine 10 MG TAB PO SCH (20:59)
[2019-05-27] MEDS ORDERED: Mirtazapine 15 MG Soltab PO SCH (21:00)
[2019-05-27] MEDS ORDERED: CALCIUM CARBONATE PO SCH (21:00)
[2019-05-27] MEDS ORDERED: Cholecalciferol (Vitamin D3) 400 UNITS TAB PO SCH (21:00)
[2019-05-27] MEDS ORDERED: Mirtazapine 15 MG TAB PO SCH (21:00)
[2019-05-27] MEDS: Cholecalciferol (Vitamin D3) 400 UNITS TAB PO SCH (21:04)
[2019-05-27] MEDS: Mirtazapine 15 MG TAB PO SCH (22:30)
[2019-05-28 03:48] LABS: #Lymphocytes 0.6 thou/uL (1.20-3.40); #Monocytes 0.1 thou/uL (0.11-0.59); #Neutrophils 8.7 thou/uL (1.40-6.50); %Basophils 0.1 % (0.0-1.0); %Lymphocytes 5.9 % (21.0-51.0); %Monocytes 0.9 % (0.0-10.0); Hemoglobin 10.3 g/dL (12.0-16.0); Mean Corpuscular Hemoglobin 29.7 pg (27.0-31.0); Mean Corpuscular Volume 92.7 fL (78.0-98.0); Mean Platelet Volume 8.1 fL (7.4-10.4); Platelet Count 188 thou/uL (130-400); RBC Distribution Width 12.7 % (11.5-14.5); Red Blood Cell (RBC) Count 3.46 mill/uL (4.20-5.40); White Blood Cell (WBC) Count 9.4 thou/uL (4.8-10.8)
[2019-05-28 04:10] LABS: BUN (Urea Nitrogen) 24 mg/dL (9.8-20.1); Calc. Creatinine Clearance 34 mL/min (70-130); Calcium 9.3 mg/dL (7.8-10.44); Estimated GFR-MDRD 61; Glucose 161 mg/dL (83-110)
[2019-05-28 04:19] LABS: Anion Gap 15 mmol/L (10-20); Chloride 92 mmol/L (98-107); Potassium 2.7 mmol/L (3.5-5.1); Sodium 145 mmol/L (136-145)
[2019-05-28 04:20] LABS: Carbon Dioxide 41 mmol/L (23-31)
[2019-05-28] MEDS: Potassium Chloride 20 MEQ in Premix Bag 1 BAG IVPB SCH ×2 (05:56→07:14)
[2019-05-28] MEDS: Furosemide 20 MG/2 ML VIAL SLOW IVP SCH ×2 (06:00→14:18)
[2019-05-28] MEDS: methylPREDNISolone Sod Succ 40 MG VIAL IVP SCH ×3 (06:00→23:01)
[2019-05-28] MEDS: Budesonide 0.5 MG/2 ML NEB NEB SCH ×2 (07:41→18:32)
[2019-05-28] MEDS: AcetaZOLAMIDE 250 MG TAB PO SCH ×3 (09:00→20:43)
[2019-05-28] MEDS: Saccharomyces boulardii 250 MG CAP PO SCH (09:00)
[2019-05-28] MEDS: Calcium Carbonate 500 MG ChewTAB PO SCH ×2 (09:00→20:43)
[2019-05-28] MEDS: Aspirin 81 mg Enteric Coated Tablet PO SCH (09:00)
[2019-05-28] MEDS: Lisinopril 20 MG TAB PO SCH ×2 (09:00→20:41)
[2019-05-28] MEDS: hydrALAZINE 10 MG TAB PO SCH ×3 (09:01→20:43)
[2019-05-28] MEDS: Cholecalciferol (Vitamin D3) 400 UNITS TAB PO SCH ×2 (09:01→20:38)
[2019-05-28] MEDS: Potassium Bicarbonate/Cit Ac 25 MEQ TAB PO SCH (09:01)
[2019-05-28] MEDS: Polyethylene Glycol 3350 17 GM Packet PO SCH (09:02)
[2019-05-28] MEDS: OLANZapine 5 MG TAB PO SCH ×2 (09:02→20:37)
--- NOTE | 2019-05-28 11:47 | PDOC.HOSPP ---
- Subjective Encounter Date: 05/28/19 Encounter Time: 10:30 Subjective: pt is off bipap this morning, per daughter she appeared baseline, no fever, no dyspnea - Objective Vital Signs & Weight: Vital Signs (12 hours) Temp Pulse Resp BP Pulse Ox 05/28/19 11:42 98 35 H 97 05/28/19 11:26 97.6 F 05/28/19 09:01 85 137/56 L 05/28/19 09:00 137/56 L 05/28/19 08:00 100 05/28/19 07:42 85 05/28/19 07:40 76 29 H 66 L 05/28/19 07:36 98.4 F 05/28/19 03:46 97.6 F 05/28/19 02:08 70 Weight Admit Weight 104 lb Weight 103 lb 8 oz Most Recent Monitor Data Heart Rate from ECG 72 NIBP 137/56 NIBP BP-Mean 83 Respiration from ECG 21 SpO2 97 I&O: 05/27/19 05/28/19 05/29/19 06:59 06:59 06:59 Intake Total 240 710 Output Total 460 1989 Balance -220 -1280 Result Diagrams: 05/28/19 03:18 05/28/19 03:18 EKG Reviewed by me: Yes Hospitalist ROS - Review of Systems ROS unobtainable: due to mental status - Medication Medications: Active Medications Generic Name Dose Route Start Last Admin Trade Name Yefriq PRN Reason Stop Dose Admin Acetazolamide 250 mg 05/27/19 15:00 05/28/19 09:00 Diamox PO 250 mg TID STACY Administration Albuterol/Ipratropium 3 ml 05/27/19 10:30 05/28/19 11:42 Duoneb NEB 3 ml [id number] STACY Administration Amlodipine Besylate 10 mg 05/27/19 21:00 05/27/19 20:59 Norvasc PO 10 mg HS STACY Administration Aspirin 81 mg 05/28/19 09:00 05/28/19 09:00 Ecotrin PO 81 mg DAILY STACY Administration Budesonide 0.5 mg 05/27/19 18:30 05/28/19 07:41 Pulmicort Neb Solution NEB 0.5 mg BID-RT STACY Administration Calcium Carbonate 500 mg 05/27/19 21:00 05/28/19 09:00 Tums PO 500 mg BID STACY Administration Cholecalciferol 200 units 05/27/19 21:00 05/28/19 09:01 Vitamin D PO 200 units BID STACY Administration Furosemide 20 mg 05/27/19 14:00 05/28/19 06:00 Lasix SLOW IVP 20 mg 0600,1400 TSACY Administration Hydralazine HCl 10 mg 05/27/19 09:00 05/28/19 09:01 Apresoline PO 10 mg TID STACY Administration Azithromycin 500 mg/ Sodium 250 mls @ 250 mls/hr 05/26/19 18:00 05/27/19 16: 53 Chloride IVPB 250 mls Q24HR STACY Administration Ceftriaxone Sodium 1 gm/ 100 mls @ 200 mls/hr 05/26/19 17:00 05/27/19 16:41 Sodium Chloride IVPB 100 mls Q24HR STACY Administration Lisinopril 20 mg 05/27/19 09:00 05/28/19 09:00 Zestril PO 20 mg BID STACY Administration Methylprednisolone Sodium Succinate 20 mg 05/27/19 14:00 05/28/19 06:00 Solu-Medrol IVP 20 mg Q8HR STACY Administration Mirtazapine 7.5 mg 05/28/19 21:00 05/27/19 22:30 Remeron PO 7.5 mg HS STACY Administration Morphine Sulfate 2 mg 05/27/19 16:11 05/27/19 16:39 Morphine SLOW IVP 2 mg Q1H PRN Administration Pain Olanzapine 5 mg 05/27/19 21:00 05/27/19 22:30 Zyprexa PO 5 mg HS STACY Administration Olanzapine 7.5 mg 05/27/19 09:00 05/28/19 09:02 Zyprexa PO 7.5 mg DAILY STACY Administration Polyethylene Glycol 17 gm 05/28/19 09:00 05/28/19 09:02 Miralax PO 17 gm DAILY STACY Administration Potassium Bicarbonate/Citric Acid 25 meq 05/28/19 09:00 05/28/19 09:01 K-Vescent PO 25 meq DAILY STACY Administration Saccharomyces Boulardii 250 mg 05/28/19 09:00 05/28/19 09:00 Florastor PO 250 mg DAILY STACY Administration Sodium Chloride 10 ml 05/27/19 21:00 05/28/19 09:01 Flush - Normal Saline IVF 10 ml Q12HR STACY Administration Sodium Chloride 10 ml 05/27/19 09:43 05/28/19 06:00 Flush - Normal Saline IVF 10 ml PRN PRN Administration Saline Flush Sterile Water 2.1 ml 05/27/19 16:45 05/27/19 18:15 Water For Injection FS 2.1 ml PRN PRN Administration RECONSTITUTION - Exam General Appearance: NAD, ill appearing Eye: PERRL, anicteric sclera ENT: normocephalic atraumatic, no oropharyngeal lesions Neck: supple, symmetric, no JVD, no thyromegaly Heart: RRR, no murmur, no gallops Respiratory - other findings: coarse sound, reduced air entry Gastrointestinal: soft, non-tender, non-distended, normal bowel sounds Extremities: no cyanosis, no clubbing Skin: normal turgor, no lesions Neurological: no focal deficits Musculoskeletal: normal tone, normal strength Psychiatric: normal affect, normal behavior Hosp A/P (1) Acute respiratory failure with hypoxia and hypercapnia Code(s): J96.01 - ACUTE RESPIRATORY FAILURE WITH HYPOXIA; J96.02 - ACUTE RESPIRATORY FAILURE WITH HYPERCAPNIA Status: Acute (2) Swallowing dysfunction Code(s): R13.10 - DYSPHAGIA, UNSPECIFIED Status: Chronic (3) Dementia Code(s): F03.90 - UNSPECIFIED DEMENTIA WITHOUT BEHAVIORAL DISTURBANCE Status: Chronic Qualifiers: Dementia type: Alzheimer's disease (4) Hypertension Code(s): I10 - ESSENTIAL (PRIMARY) HYPERTENSION Status: Chronic Qualifiers: Hypertension type: essential hypertension Qualified Code(s): I10 - Essential (primary) hypertension (5) Schizoaffective disorder Code(s): F25.9 - SCHIZOAFFECTIVE DISORDER, UNSPECIFIED Status: Chronic (6) Type 2 myocardial infarction Code(s): I21.A1 - MYOCARDIAL INFARCTION TYPE 2 Status: Acute (7) Pulmonary hypertension Code(s): I27.20 - PULMONARY HYPERTENSION, UNSPECIFIED Status: Chronic (8) Protein-calorie malnutrition, moderate Code(s): E44.0 - MODERATE PROTEIN-CALORIE MALNUTRITION Status: Chronic (9) Hypokalemia Code(s): E87.6 - HYPOKALEMIA Status: Acute - Plan old records reviewed/req, plan discussed w/ family, continue antibiotics, PT/OT , health care social worker, respiratory therapy transfer to [facility] pulmonary consult cardiology consult reduce lasix add diamox discussed with family, pt is full code medication reviewed continue symptomatic care bipap home medication reconciled continue rocephin and azithromycin add solumedrol 05/28/19 start diet as per speech medication reviewed as above symptomatic treatment supportive care discussed with daughter continue supportive care pulmonary following replace potassium
--- NOTE | 2019-05-28 12:04 | PRG ---
DATE OF SERVICE: 05/28/2019 SUBJECTIVE: Racheal Boston still appears extremely weak. The daughter and the have not made any decisions. I have again asked her to get with her siblings and make a decision about her code status. Off BiPAP, she looks extremely weak and she is using every one of her accessory muscles just for breathing at rest. OBJECTIVE: VITAL SIGNS: Heart rate is in the 80s, she is afebrile, blood pressure 137/56, and oximetry is in the high 90s. LUNGS: Still remarkable for rhonchi. HEART: Regular rhythm. ABDOMEN: Soft. EXTREMITIES: Without edema, extremely cachectic. LABORATORY DATA: White count 9.4, hemoglobin 10.3, and platelets 188. Sodium 145, potassium 3.7, chloride 92, bicarb 41, BUN 24, and creatinine 0.88. IMPRESSION: Respiratory failure, chronic with acute decompensation secondary to pneumonia. PLAN: I have explained to the daughter that I do not see her surviving this hospitalization, no matter what we do. I have encouraged her to make a decision to focus more on comfort care at this point. She plans to talk to her siblings again. Job ID: [id number]
--- NOTE | 2019-05-28 13:10 | CON ---
DATE OF CONSULTATION: HISTORY OF PRESENT ILLNESS: Racheal Boston is an 88-year-old very frail white female, who was evaluated by Dr. Lenz in 05/2018, when she was admitted with diastolic heart failure. Systolic pressures were as high as 200. She was bradycardic for her rates in 30s and 40s and metoprolol dose was reduced. She was placed on Lasix. She is now admitted with increased shortness of breath, has been seen by Pulmonology, and felt this is recurrent respiratory problems due to recurrent aspiration. The daughter states that whenever she tries to eat or drink anything that she coughs. She was on BiPAP yesterday, but is now off this. She denies any chest discomfort. PAST MEDICAL HISTORY: 1. History of diastolic heart failure. 2. Anxiety. 3. Schizophrenia. 4. Hypertension. 5. Hyperlipidemia. 6. History of CVA. 7. Osteoporosis. MEDICATIONS: 1. Amlodipine 10 mg nightly. 2. Aspirin 81 daily. 3. Budesonide 0.5 mg inhaled b.i.d. 4. Vitamin D3 of 200 units b.i.d. 5. Furosemide 10 daily. 6. Hydralazine 10 t.i.d. 7. DuoNebs b.i.d. 8. Lisinopril 20 b.i.d. 9. Remeron 7.5 mg nightly. 10. Olanzapine 7.5 mg every other day. ALLERGIES: ATIVAN. OPERATIONS: 1. Bladder suspension. 2. Oophorectomy. SOCIAL HISTORY: She does not smoke or drink. FAMILY HISTORY: Both parents had coronary artery disease. REVIEW OF SYSTEMS: Otherwise unremarkable. PHYSICAL EXAMINATION: VITAL SIGNS: Blood pressure 137/56, pulse of 85 and sinus rhythm. She has had one episode of paroxysmal atrial tachycardia. HEENT: PERRL. NECK: Supple. CHEST: Occasional rhonchi. CARDIOVASCULAR: S1 and S2 are normal without any S3 or S4. There are no murmurs. ABDOMEN: Normal bowel sounds without tenderness. EXTREMITIES: No edema. NEUROLOGIC: The patient is conversant and moves all extremities. LABORATORY DATA: I do not see an EKG on the chart. Hemoglobin 10.3, hematocrit 32.0, white count 9400, and platelets 188,000. A pH 7.37, pCO2 of 95.8, and pO2 of 74.2. Sodium 145, potassium 2.7, chloride 92, carbon dioxide 41, BUN 24, and creatinine 0.88. Troponin-I 0.79. BNP 580.7. Chest x-ray reveals bilateral effusion and right lung infiltrate. IMPRESSION: 1. Aspiration pneumonia. 2. Acute respiratory failure with hypercapnia, severe with pCO2 of 95.8. 3. History of diastolic heart failure. 4. Atrial tachycardia. 5. History of schizophrenia. 6. Hypertension. 7. Hyperlipidemia. 8. Dementia. PLAN: EKG will be obtained. The patient will continue to be monitored. Certainly her long-term prognosis is poor given her severe CO2 retention and continued history of aspiration. Job ID: [id number] [facility]
[2019-05-28] MEDS: Azithromycin 500 MG in Sodium Chloride 0.9% 250 ML 250 ML IVPB SCH (17:22)
[2019-05-28] MEDS: cefTRIAXone\\ROCEPHIN 1 GM in Sodium Chloride 0.9% 100 ML IVPB SCH (17:22)
[2019-05-28] MEDS: Amlodipine 10 MG TAB PO SCH (20:42)
[2019-05-28] MEDS: Mirtazapine 15 MG TAB PO SCH (20:42)
[2019-05-29 03:50] LABS: #Lymphocytes 0.6 thou/uL (1.20-3.40); #Monocytes 0.1 thou/uL (0.11-0.59); #Neutrophils 10.9 thou/uL (1.40-6.50); %Basophils 0.2 % (0.0-1.0); %Eosinophils 0.1 % (0.0-10.0); %Lymphocytes 5.4 % (21.0-51.0); %Monocytes 1.1 % (0.0-10.0); %Neutrophils 93.2 % (42.0-75.0); Hemoglobin 10.2 g/dL (12.0-16.0); Mean Corpuscular HGB CONC 31.9 g/dL (32.0-36.0); Mean Corpuscular Hemoglobin 29.6 pg (27.0-31.0); Mean Corpuscular Volume 92.8 fL (78.0-98.0); Platelet Count 206 thou/uL (130-400); Red Blood Cell (RBC) Count 3.45 mill/uL (4.20-5.40); White Blood Cell (WBC) Count 11.7 thou/uL (4.8-10.8)
[2019-05-29 04:08] LABS: BUN (Urea Nitrogen) 29 mg/dL (9.8-20.1); Calc. Creatinine Clearance 34 mL/min (70-130); Calcium 9.4 mg/dL (7.8-10.44); Estimated GFR-MDRD 62; Glucose 149 mg/dL (83-110)
[2019-05-29 04:10] LABS: Potassium 2.3 mmol/L (3.5-5.1)
[2019-05-29 04:17] LABS: Anion Gap 11 mmol/L (10-20); Carbon Dioxide 38 mmol/L (23-31); Chloride 97 mmol/L (98-107); Sodium 144 mmol/L (136-145)
[2019-05-29] MEDS ORDERED: Potassium Chloride 20 MEQ TAB PO SCH (04:30)
[2019-05-29] MEDS ORDERED: Potassium Chloride 20 MEQ in Premix Bag 1 BAG IVPB SCH (04:45)
[2019-05-29] MEDS: Budesonide 0.5 MG/2 ML NEB NEB SCH (05:12)
[2019-05-29] MEDS: methylPREDNISolone Sod Succ 40 MG VIAL IVP SCH (05:45)
[2019-05-29] MEDS: Furosemide 20 MG/2 ML VIAL SLOW IVP SCH ×2 (07:20→13:11)
[2019-05-29] MEDS: Cholecalciferol (Vitamin D3) 400 UNITS TAB PO SCH (08:42)
[2019-05-29] MEDS: OLANZapine 5 MG TAB PO SCH (08:43)
[2019-05-29] MEDS: Potassium Bicarbonate/Cit Ac 25 MEQ TAB PO SCH (08:43)
[2019-05-29] MEDS: Aspirin 81 mg Enteric Coated Tablet PO SCH (08:43)
[2019-05-29] MEDS: Calcium Carbonate 500 MG ChewTAB PO SCH (08:43)
[2019-05-29] MEDS: Lisinopril 20 MG TAB PO SCH (08:43)
[2019-05-29] MEDS: Polyethylene Glycol 3350 17 GM Packet PO SCH (08:44)
[2019-05-29] MEDS: Saccharomyces boulardii 250 MG CAP PO SCH (08:44)
[2019-05-29] MEDS: hydrALAZINE 10 MG TAB PO SCH ×2 (08:44→15:08)
[2019-05-29] MEDS: AcetaZOLAMIDE 250 MG TAB PO SCH ×2 (08:44→15:08)
--- NOTE | 2019-05-29 10:22 | PDOC.HOSPP ---
- Subjective Encounter Date: 05/29/19 Encounter Time: 09:50 Subjective: Patient seen and examined. No new complaints. No overnight events pe family pt is baseline, she used bipap last night - Objective Vital Signs & Weight: Vital Signs (12 hours) Temp Pulse Resp BP BP Pulse Ox 05/29/19 08:44 68 126/71 05/29/19 08:43 126/71 05/29/19 08:00 100 05/29/19 07:53 98.9 F 05/29/19 05:12 68 05/29/19 04:00 97.4 F L 74 22 H 142/67 H 100 05/29/19 02:18 71 05/29/19 00:00 98.7 F 83 23 H 135/67 99 Weight Admit Weight 104 lb Weight 94 lb 14.4 oz Most Recent Monitor Data Heart Rate from ECG 80 NIBP 126/71 NIBP BP-Mean 89 Respiration from ECG 35 SpO2 100 I&O: 05/28/19 05/29/19 05/30/19 06:59 06:59 06:59 Intake Total 710 840 Output Total 1990 700 Balance -1280 140 Result Diagrams: 05/29/19 03:24 05/29/19 03:24 EKG Reviewed by me: Yes Hospitalist ROS - Review of Systems Constitutional: reports: weakness, malaise ENT: denies: ear pain, ear discharge, nose pain, nose discharge, nose congestion , mouth pain, mouth swelling, throat pain, throat swelling, other Respiratory: reports: cough, shortness of breath, SOB with excertion. denies: dry, hemoptysis, pleuritic pain, sputum, wheezing, other Cardiovascular: denies: chest pain, palpitations, orthopnea, paroxysmal noc. dyspnea, edema, light headedness, other Gastrointestinal: denies: nausea, vomiting, abdominal pain, diarrhea, constipation, melena, hematochezia, other Genitourinary: denies: dysuria, frequency, incontinence, hematuria, retention, other - Medication Medications: Active Medications Generic Name Dose Route Start Last Admin Trade Name Freq PRN Reason Stop Dose Admin Acetazolamide 250 mg 05/27/19 15:00 05/29/19 08:44 Diamox PO 250 mg TID STACY Administration Albuterol/Ipratropium 3 ml 05/27/19 10:30 05/29/19 05:11 Duoneb NEB 3 ml [id number] STACY Administration Amlodipine Besylate 10 mg 05/27/19 21:00 05/28/19 20:42 Norvasc PO 10 mg HS STACY Administration Aspirin 81 mg 05/28/19 09:00 05/29/19 08:43 Ecotrin PO 81 mg DAILY STACY Administration Budesonide 0.5 mg 05/27/19 18:30 05/29/19 05:12 Pulmicort Neb Solution NEB 0.5 mg BID-RT STACY Administration Calcium Carbonate 500 mg 05/27/19 21:00 05/29/19 08:43 Tums PO 500 mg BID STACY Administration Cholecalciferol 200 units 05/27/19 21:00 05/29/19 08:42 Vitamin D PO 200 units BID STACY Administration Furosemide 20 mg 05/27/19 14:00 05/29/19 07:20 Lasix SLOW IVP Not Given 0600,1400 STACY Hydralazine HCl 10 mg 05/27/19 09:00 05/29/19 08:44 Apresoline PO 10 mg TID STACY Administration Azithromycin 500 mg/ Sodium 250 mls @ 250 mls/hr 05/26/19 18:00 05/28/19 17: 22 Chloride IVPB 250 mls Q24HR STACY Administration Ceftriaxone Sodium 1 gm/ 100 mls @ 200 mls/hr 05/26/19 17:00 05/28/19 17:22 Sodium Chloride IVPB 100 mls Q24HR STACY Administration Lisinopril 20 mg 05/27/19 09:00 05/29/19 08:43 Zestril PO 20 mg BID STACY Administration Methylprednisolone Sodium Succinate 20 mg 05/27/19 14:00 05/29/19 05:45 Solu-Medrol IVP 20 mg Q8HR STACY Administration Mirtazapine 7.5 mg 05/28/19 21:00 05/28/19 20:42 Remeron PO 7.5 mg HS STACY Administration Morphine Sulfate 2 mg 05/27/19 16:11 05/27/19 16:39 Morphine SLOW IVP 2 mg Q1H PRN Administration Pain Olanzapine 5 mg 05/27/19 21:00 05/28/19 20:37 Zyprexa PO 5 mg HS STACY Administration Olanzapine 7.5 mg 05/27/19 09:00 05/29/19 08:43 Zyprexa PO 7.5 mg DAILY STACY Administration Polyethylene Glycol 17 gm 05/28/19 09:00 05/29/19 08:44 Miralax PO 17 gm DAILY STACY Administration Potassium Bicarbonate/Citric Acid 25 meq 05/28/19 09:00 05/29/19 08:43 K-Vescent PO 25 meq DAILY STACY Administration Saccharomyces Boulardii 250 mg 05/28/19 09:00 05/29/19 08:44 Florastor PO 250 mg DAILY STACY Administration Sodium Chloride 10 ml 05/27/19 21:00 05/29/19 08:45 Flush - Normal Saline IVF 10 ml Q12HR STACY Administration Sodium Chloride 10 ml 05/27/19 09:43 05/29/19 05:46 Flush - Normal Saline IVF 10 ml PRN PRN Administration Saline Flush Sterile Water 2.1 ml 05/27/19 16:45 05/27/19 18:15 Water For Injection FS 2.1 ml PRN PRN Administration RECONSTITUTION - Exam General Appearance: NAD, ill appearing Eye: PERRL, anicteric sclera ENT: normocephalic atraumatic, no oropharyngeal lesions Neck: supple, symmetric, no JVD Heart: no murmur, no gallops Respiratory: rales, rhonchi Gastrointestinal: soft, non-tender, non-distended, normal bowel sounds Extremities: no cyanosis, no clubbing Skin: normal turgor Neurological: cranial nerve grossly intact, no focal deficits Hosp A/P (1) Acute respiratory failure with hypoxia and hypercapnia Code(s): J96.01 - ACUTE RESPIRATORY FAILURE WITH HYPOXIA; J96.02 - ACUTE RESPIRATORY FAILURE WITH HYPERCAPNIA Status: Acute (2) Swallowing dysfunction Code(s): R13.10 - DYSPHAGIA, UNSPECIFIED Status: Chronic (3) Dementia Code(s): F03.90 - UNSPECIFIED DEMENTIA WITHOUT BEHAVIORAL DISTURBANCE Status: Chronic Qualifiers: Dementia type: Alzheimer's disease (4) Hypertension Code(s): I10 - ESSENTIAL (PRIMARY) HYPERTENSION Status: Chronic Qualifiers: Hypertension type: essential hypertension Qualified Code(s): I10 - Essential (primary) hypertension (5) Schizoaffective disorder Code(s): F25.9 - SCHIZOAFFECTIVE DISORDER, UNSPECIFIED Status: Chronic (6) Type 2 myocardial infarction Code(s): I21.A1 - MYOCARDIAL INFARCTION TYPE 2 Status: Acute (7) Pulmonary hypertension Code(s): I27.20 - PULMONARY HYPERTENSION, UNSPECIFIED Status: Chronic (8) Protein-calorie malnutrition, moderate Code(s): E44.0 - MODERATE PROTEIN-CALORIE MALNUTRITION Status: Chronic (9) Hypokalemia Code(s): E87.6 - HYPOKALEMIA Status: Acute - Plan old records reviewed/req, plan discussed w/ family, respiratory therapy transfer to [facility] pulmonary consult cardiology consult reduce lasix add diamox discussed with family, pt is full code medication reviewed continue symptomatic care bipap home medication reconciled continue rocephin and azithromycin add solumedrol 05/28/19 start diet as per speech medication reviewed as above symptomatic treatment supportive care discussed with daughter continue supportive care pulmonary following replace potassium 05/29/19 discussed with family pt is very weak bu per family baseline prognosis is guarded pulmonary following
[2019-05-29 13:47] VITALS: BMI 16.2
--- NOTE | 2019-05-29 14:48 | DIS ---
DATE OF ADMISSION: 05/27/2019 DATE OF DISCHARGE: 05/29/2019 PRIMARY CARE PHYSICIAN: Mike Camilo MD DISCHARGE DISPOSITION: Home with home hospice. PRIMARY DISCHARGE DIAGNOSES: 1. Acute respiratory failure with hypoxia. 2. Type 2 myocardial infarction. 3. Pulmonary hypertension. 4. Chronic obstructive pulmonary disease exacerbation with bronchitis. 5. Moderate protein-calorie malnutrition. 6. Aspiration pneumonia. SECONDARY DISCHARGE DIAGNOSES: Oropharyngeal dysphagia, schizophrenia, hypertension, dementia, physical deconditioning, and history of cerebrovascular accident. PRIMARY PROCEDURE/OPERATION: None. RADIOLOGICAL INVESTIGATION: Chest x-ray on admission showed enlarging bilateral pleural effusion, progressive pulmonary opacification of right lung, cardiomegaly, and right rib fracture. SIGNIFICANT LABORATORY DATA: WBC 11.7, hemoglobin 10.2, and platelet 206. CO2 of 95.8, pH 7.37. Sodium 144, potassium 2.3, BUN 29, and creatinine 0.87. Troponin 0.064. BNP 580.7. Influenza A and B negative. DISCHARGE MEDICATIONS: 1. Norvasc 10 mg daily. 2. Aspirin 81 mg daily. 3. Pulmicort nebulization twice daily. 4. Calcium carbonate one tablet b.i.d. 5. Vitamin D3 of 200 units p.o. b.i.d. 6. Lasix 10 mg daily. 7. DuoNeb twice daily. 8. Lidoderm patch p.r.n. 9. Magnesium oxide b.i.d. 10. Olanzapine 5 mg p.o. at bedtime. 11. Olanzapine 7.5 mg in the morning. 12. MiraLAX 17 g p.o. daily. 13. Zinc 30 mg daily. 14. Omnicef 300 mg p.o. b.i.d. 15. Hydralazine 10 mg p.o. t.i.d. 16. Lisinopril 20 mg b.i.d. 17. Prednisone 40 mg p.o. daily for 7 days. 18. Florastor 250 mg p.o. daily for 7 days. 19. Omnicef 300 mg p.o. b.i.d. for 7 days. CONTRAINDICATION: None. CODE STATUS: Chemical code. INPATIENT CONSULTANTS: Cardiology and Pulmonology. TEST RESULTS PENDING ON DISCHARGE: None. ALLERGIES: LORAZEPAM. DISCHARGE PLAN: Posthospital, the patient will follow up with hospice team. HOSPITAL COURSE: An 88-year-old female who was admitted by Dr. Boland. Please see his H and P for further details. On May 26, 2019, the patient was admitted for increasing shortness of breath. The patient was hypoxic. The patient requiring oxygen. The patient did not have any hypoxia before. The patient required non-rebreather. The patient was admitted full admission to telemetry floor. The next day, the patient's condition deteriorated and the patient had a CO2 narcosis. The patient developed hypercapnia and hypoxia, required BiPAP and subsequently ICU transfer. The patient was evaluated by Pulmonary group. Subsequently, Cardiology group was also consulted for underlying elevated troponin and elevated BNP. This patient has underlying pulmonary hypertension. The patient also has chronic oropharyngeal dysphagia with aspiration pneumonia. This patient's prognosis was very poor. The patient did not want to do any aggressive intervention. They changed code status from full code to chemical code. They agreed with going home today with home hospice. The patient is seen and examined at bedside today. Please see my progress note from today. Electrolyte was replaced. The patient prognosis is very poor. Job ID: [id number]
[2019-05-29 15:08] VITALS: BP 138/68
[2019-05-29 17:34] VITALS: TEMP 98.8
--- NOTE | 2019-05-29 19:26 | PRG ---
DATE OF SERVICE: 05/29/2019 Ms. Boston's family has elected to take her home with hospice. Told by the nursing staff, everyone is comfortable with this decision. She has a huge list of home medicine. I would consider discontinuing all of these medications, but I will defer to the hospitalist for this. I have signed her [id number] do not resuscitate paper work. Job ID: [id number]
[2019-05-29] MEDS ORDERED: Cefdinir 300 MG CAP PO SCH (21:00)
[2019-05-30] MEDS ORDERED: predniSONE 20 MG TAB PO SCH (08:00)
== END 2019-05-29 18:59 | disposition hospice, home (50) | DRG 177 ==
LOC: ERS 14:12 → 2SW 15:57 → OBSVTOIN 05-27 08:35 → CCU 05-27 10:01 → IMCU/EMU 05-27 12:03
PROVIDERS: ADMIT Internal Medicine; ATTEND Internal Medicine
DX: J69.0 Pneumonitis due to inhalation of food and vomit (principal); J96.01 Acute respiratory failure with hypoxia; I21.A1 Myocardial infarction type 2; J96.21 Acute and chronic respiratory failure with hypoxia; J96.22 Acute and chronic respiratory failure with hypercapnia; Z51.5 Encounter for palliative care; J44.1 Chronic obstructive pulmonary disease with (acute) exacerbation; E44.0 Moderate protein-calorie malnutrition; Z68.1 Body mass index [BMI] 19.9 or less, adult; I42.9 Cardiomyopathy, unspecified; I50.32 Chronic diastolic (congestive) heart failure; I27.20 Pulmonary hypertension, unspecified; J40 Bronchitis, not specified as acute or chronic; R13.12 Dysphagia, oropharyngeal phase; F20.9 Schizophrenia, unspecified; F03.90 Unspecified dementia, unspecified severity, without behavioral disturbance, psychotic disturbance, mood disturbance, and anxiety; E78.5 Hyperlipidemia, unspecified; F32.9 Major depressive disorder, single episode, unspecified; I11.0 Hypertensive heart disease with heart failure; M81.0 Age-related osteoporosis without current pathological fracture; E87.6 Hypokalemia; Z86.73 Personal history of transient ischemic attack (TIA), and cerebral infarction without residual deficits; Z99.81 Dependence on supplemental oxygen; Z90.721 Acquired absence of ovaries, unilateral; Z79.899 Other long term (current) drug therapy; Z79.82 Long term (current) use of aspirin; Z79.51 Long term (current) use of inhaled steroids; Z88.8 Allergy status to other drugs, medicaments and biological substances
CPT/HCPCS: 36415; 71045; 80048; 80053; 82330; 82553; 82803; 82805; 83880; 84484; 85025; 87804; 93005; 93010; 94640; 94660; 96365; 96367; 96375; J0456; J0696; J1120; J1940; J2270; J2920; J3480; J3490; J7050; J7620; J7626